=== PATIENT | male | born 1965 | race Caucasian/White ===

== ENCOUNTER 2023-05-08 13:14 | Emergency (ER) | payer OTHER, SELFPAY ==
[2023-05-08 13:37] VITALS: BP 148/81; PULSE 99; RESP 18; TEMP 37; O2SAT 99
--- NOTE | 2023-05-08 13:44 | ED.NAVMDI ---
HPI - Nausea/Vomiting/Diarrhea General Chief complaint: Nausea/Vomiting/Diarrhea Stated complaint: diarrhea/abdo pain Source: patient and RN notes reviewed Mode of arrival: ambulatory Limitations: no limitations History of Present Illness HPI Narrative: 57 y/o male presented for c/o left side abdominal pain and diarrhea for 4 days. States pain was improved yesterday but returned and is worse today. Pain radiates to left flank, described as dull. Endorses dark urine this morning. LBM today, 2 loose stools. Last ate this morning. Endorses unprotected sexual contact a few months ago. Denies urethral discharge, hematuria, penile pain. Denies cough, sob, wheezing, vomiting, hematochezia, or fever. No meds for symptoms. Has been on metformin and Ozempic a few months and a new med for ADHD for a few weeks. Related Data Home Medications Medication Instructions Recorded Confirmed atomoxetine 40 mg capsule 40 mg PO DAILY 05/08/23 05/08/23 metformin 500 mg tablet 500 mg PO DAILY 05/08/23 05/08/23 Allergies Allergy/AdvReac Type Severity Reaction Status Date / Time No Known Allergies Allergy Verified 05/08/23 13:35 Review of Systems Review of Systems: CONSTITUTIONAL: Denies body aches, fever, chills ENT: Denies rhinorrhea, congestion CARDIOVASCULAR: Denies chest pain, palpitations, or edema. RESPIRATORY: Denies cough or dyspnea. GASTROINTESTINAL: Endorses abdominal pain, diarrhea. Denies nausea, vomiting, hematochezia, melena, hematemesis GENITOURINARY: Denies dysuria, hematuria, reports flank pain SKIN: Denies rash, itching, or wounds. MUSCULOSKELETAL: Denies joint pain, or myalgia. NEUROLOGIC: Denies headache, numbness, tingling, or weakness. All systems reviewed & are unremarkable except as noted in HPI and below PMFSH Past Medical History Medical History (Updated 05/08/23 @ 14:13 by Shahida Hollingsworth APRN) ADHD Depression Diabetes History of genital warts Comments At time of signature, I have reviewed and agree with nursing past medical, surgical, social and family history unless otherwise noted. Please see nursing chart for further information. There is no relevant family history pertinent to the presenting complaint Exam Narrative: GENERAL: mildly ill-appearing, and in no acute distress. EYES: EOMI. Conjunctivae normal. ENT: Mucous membranes pink and moist. CHEST: No respiratory distress. Clear to auscultation. HEART: Regular rate and rhythm. No murmur appreciated. Normal peripheral pulses. ABDOMEN: abd soft, nondistended, normal active bowel sounds. Tender abdomen to LLQ and flank; No guarding, rebound tenderness, asymmetry or discoloration. Pt reports laying flat improves symptoms. EXTREMITIES: Normal range of motion. No edema. SKIN: Warm, dry, no rash. Capillary refill normal. Normal skin turgor. NEURO: No focal deficits. Alert and oriented x3. PSYCH: flat affect. Course Course Emergency Course: Patient is aware of diagnosis, understands and agrees to treatment plan. Anticipatory guidance given. Patient agrees to follow-up as directed and is aware of reasons to seek care at the emergency department. Portions of this record may have been created with voice recognition software Level of Care: Express Care Visit Vital Signs Vital signs: Vital Signs Temperature 98.6 F 05/08/23 13:37 Pulse Rate 99 05/08/23 13:37 Respiratory Rate 18 05/08/23 13:37 Blood Pressure 148/81 H 05/08/23 13:37 Pulse Oximetry 99 05/08/23 13:37 Oxygen Delivery Room Air 05/08/23 13:37 Temperature 98.6 F 05/08/23 13:37 Pulse Rate 99 05/08/23 13:37 Respiratory Rate 18 05/08/23 13:37 Blood Pressure 148/81 H 05/08/23 13:37 Pulse Oximetry 99 05/08/23 13:37 Oxygen Delivery Room Air 05/08/23 13:37 Transfer Transfered to: [facility] Transportation: Other ( Private vehicle) Transfer rationale: Pt is agreeable to transfer. Requests transfer to [facility]
[2023-05-08 21:00] LABS: Trichomonas Vag PCR NOT DETECTED (NOT DETECTE)
[2023-05-08 21:23] LABS: Chlamydia trachomatis NOT DETECTED (NOT DETECTE); Neisseria gonorrhoeae PCR NOT DETECTED (NOT DETECTE)
== END 2023-05-08 14:20 | disposition home or self-care (01) ==
LOC: EXPBETH 13:19
PROVIDERS: Emergency Provider Nurse Practitioner Family; PCP Internal Medicine Infectious Disease
DX: R10.9 Unspecified abdominal pain (principal); E11.9 Type 2 diabetes mellitus without complications; Z79.899 Other long term (current) drug therapy; Z79.84 Long term (current) use of oral hypoglycemic drugs
CPT/HCPCS: 81003; 87086; 87491; 87591; 87661; 99213; G0463